=== PATIENT | female | born 1945 | race Caucasian/White ===

== ENCOUNTER 2022-03-28 07:28 | Day surgery (SDC) | payer MEDICARE, OTHER ==
[~2022-03-28] VITALS: Ht 157.5 cm; Wt 54.5 kg
[~2022-03-28 07:28] MED LIST: AMLO2.5T96 PO; ARIP5TAB58 PO; ASPI-1450 PO; ATOR10TA84 PO; CARV25 PO; CHOL500043 PO; CLOP75TA60 PO; DAPA10TA PO; DEXL30CA3 PO; DOCU-385 PO; DONE-52 PO; DULO-114 PO; ERGO400T7 PO; EXEN2AUT SQ; GABA-1216 PO; GLIM2 PO; IBUP-2071 PO; ICOS1CAP PO; INSU3INS5 SQ; LISI-894 PO; LORA10TA7 PO; LUBI8CAP PO; MECL-134 PO; METF-1185 PO; MIRA50TA PO; NIFE-46 PO; NITR0.4T52 SL; PANT-31 PO; POTA8TAB71 PO; RANO500T3 PO; ROSU20TA73 PO; SODIUM CHLORIDE 0.9% 1,000 ML IV ONE; SODIUM CHLORIDE 0.9% 1,000 ML ONE; TORS20TA5 PO
[2022-03-28] MEDS ORDERED: SODI650T33 PO (08:22)
[2022-03-28] MEDS ORDERED: ALEN70TA65 PO (08:22)
[2022-03-28] MEDS ORDERED: LINA5TAB PO (08:22)
[2022-03-28] MEDS ORDERED: VIBE75TA PO (08:22)
[2022-03-28] MEDS ORDERED: MEMA10TA11 PO (08:22)
[2022-03-28] MEDS ORDERED: FAMO20 PO (08:22)
[2022-03-28 09:01] LABS: GLUCOMETER DEV NAME(LOC) SDS.; GLUCOSE,POINT OF CARE 112 MG/DL (70-110)
[2022-03-28] MEDS ORDERED: ASPIRIN 81 MG CHEWABLE TABLET ONE (09:08)
[2022-03-28] MEDS ORDERED: DIAZEPAM 5 MG TABLET ONE (09:08)
[2022-03-28] MEDS ORDERED: DiphenhydrAMINE HCL 50 MG CAPSULE ONE (09:08)
[2022-03-28] MEDS ORDERED: DiphenhydrAMINE HCL 50 MG CAPSULE PO ONE (11:00)
[2022-03-28] MEDS ORDERED: ASPIRIN 81 MG CHEWABLE TABLET PO ONE (11:00)
[2022-03-28] MEDS ORDERED: DIAZEPAM 5 MG TABLET PO ONE (11:00)
[2022-03-28] MEDS ORDERED: IOHEXOL 350 MG/ML 100 ML VIAL ONE ×2 (13:13→14:21)
[2022-03-28] MEDS ORDERED: SODIUM BICARBONATE 50 MEQ/50 ML VIAL ONE (13:13)
[2022-03-28] MEDS ORDERED: LIDOCAINE/PF 1% 30 ML VIAL ONE (13:13)
[2022-03-28] MEDS ORDERED: HEPARIN SODIUM 1000 UNITS/NS 1,000 ML ONE (13:14)
[2022-03-28] MEDS ORDERED: MIDAZOLAM HCL 2 MG/2 ML VIAL ONE (13:33)
[2022-03-28] MEDS ORDERED: FentaNYL CITRATE PF 100 MCG/2 ML VIAL ONE (13:33)
[2022-03-28 13:45] VITALS: BP 138/72
[2022-03-28] MEDS ORDERED: MIDAZOLAM HCL 2 MG/2 ML VIAL IVP ONE ×2 (13:45→14:45)
[2022-03-28] MEDS ORDERED: SODIUM CHLORIDE 0.9% 500 ML IV ONE (13:45)
[2022-03-28] MEDS ORDERED: FentaNYL CITRATE PF 100 MCG/2 ML VIAL IVP ONE ×3 (13:45→14:15)
[2022-03-28] MEDS ORDERED: CHOL500013 PO (14:00)
[2022-03-28] MEDS ORDERED: CALC-911 PO (14:00)
[2022-03-28] MEDS ORDERED: INSU100I3 SQ (14:00)
[2022-03-28] MEDS ORDERED: RANO10005 PO (14:00)
[2022-03-28] MEDS ORDERED: OLOP5DRO27 OU (14:00)
[2022-03-28] MEDS ORDERED: POTA-92 PO (14:00)
[2022-03-28] MEDS ORDERED: ESTR42.510 VG (14:00)
[2022-03-28] MEDS ORDERED: ASPI-1444 PO (14:08)
[2022-03-28] MEDS ORDERED: KETO.5OS OS (14:08)
[2022-03-28] MEDS ORDERED: LINA72CA PO (14:08)
[2022-03-28] MEDS ORDERED: LISI2.5T13 PO (14:08)
[2022-03-28] MEDS ORDERED: IOHEXOL 350 MG/ML 100 ML VIAL IARTER ONE ×2 (14:15)
[2022-03-28] MEDS ORDERED: HEPARIN SODIUM,PORCINE 1,000 UNITS/ML 10 ML VIAL IVP ONE (14:15)
[2022-03-28] MEDS ORDERED: TICAGRELOR 90 MG TABLET PO ONE ×2 (14:45→19:00)
[2022-03-28 14:58] VITALS: BP 131/70
[2022-03-28] MEDS ORDERED: TICAGRELOR 90 MG TABLET ONE (18:20)
== END 2022-03-28 19:15 | disposition home or self-care (01) ==
LOC: CATHLAB 07:28
PROVIDERS: ATTEND Internal Medicine Interventional Cardiology
DX: I25.10 Atherosclerotic heart disease of native coronary artery without angina pectoris (principal); E11.9 Type 2 diabetes mellitus without complications; M06.9 Rheumatoid arthritis, unspecified; I10 Essential (primary) hypertension; Z79.899 Other long term (current) drug therapy; Z98.890 Other specified postprocedural states
CPT/HCPCS: 82962; 93005; 93459; 92978; C9600; C1757; C1887; C1760; C1874; J3010; J1644; J3490 ×2; J2250; Q9967; J7030; C1753; 75960; 92920; 92928